=== PATIENT | male | born 1970 | race African-American/Black ===

== ENCOUNTER 2020-05-10 12:04 | Observation (INO) ==
[2020-05-10] MEDS ORDERED: METOPROLOL TARTRATE 5 MG/5 ML VIAL IV STA (13:08)
[2020-05-10] MEDS ORDERED: ASPIRIN 325 MG TABLET PO STA (13:08)
[2020-05-10 13:09] LABS: Troponin I < 0.015 NG/ML (0.00-0.045)
[2020-05-10 13:25] LABS: Basophils # 0.1 10*3/uL (0.0-0.2); Basophils % 1.4 % (0.0-0.8); Eosinophils # 0.1 10*3/uL (0.0-0.87); Eosinophils % 1.4 % (0.00-10.9); Hematocrit 47.9 VOL% (42.0-52.0); Hemoglobin 15.1 GM/DL (14.0-18.0); Immature Granulocytes % 0.3 %; Immature Granulocytes Absolute 0.02 #; Lymphocytes # 2.5 10*3/uL (1.4-4.0); Lymphocytes % 43.3 % (21.2-54.2); Mean Corpuscular HGB Conc 31.5 GM/DL (32-36); Mean Corpuscular Volume 88.7 FL (87-102); Mean Platelet Volume 10.8 FL (9.6-12.0); Monocytes % 5.4 % (1.7-12.7); Neutrophils % 48.2 % (38.7-73.9); Platelet Count 389 T/CUMM (130-400); Red Cell Distribution Width 11.7 % (9.3-17.3); White Blood Count 5.8 T/CUMM (4-12)
[2020-05-10 13:39] LABS: Albumin 4.3 G/DL (3.4-5.0); Bilirubin,Total 0.9 MG/DL (0.2-1.0); Calcium 9.3 MG/DL (8.5-10.1); Osmolality,Calculated 276.4 MOS/KG (273-304); Potassium 3.8 MMOL/L (3.5-5.1); Total Protein 9.1 G/DL (5.0-7.5)
[2020-05-10 14:42] LABS: Bilirubin,Urine Negative (Negative); Blood, Urine Negative (Negative); Glucose,Urine (UA) Negative (Negative); Ketones,Urine Negative (Negative); Nitrite,Urine Negative (Negative); Protein,Urine Negative; RBC,Urine 2 /HPF (0-4); Urine Appearance CLEAR (Clear); Urine Color Colorless (Yellow); Urine Specific Gravity 1.003 (1.001-1.035); Urine Urobilinogen < 2.0 EU/DL (0.2-1.0); WBC,Urine <1 /HPF (0-6)
[2020-05-10] MEDS ORDERED: hydrALAZINE 20 MG/1 ML VIAL IV PRN (14:56)
[2020-05-10] MEDS ORDERED: DEXTROSE 50% 25 GM/50 ML VIAL IV PRN (14:56)
[2020-05-10] MEDS ORDERED: ACETAMINOPHEN 325 MG TABLET PO PRN (14:56)
[2020-05-10] MEDS ORDERED: NITROGLYCERIN SL 0.4 MG TABLET SL PRN (14:56)
[2020-05-10] MEDS ORDERED: ONDANSETRON 4 MG/2 ML VIAL IV PRN (14:56)
[2020-05-10] MEDS ORDERED: GLUCAGON 1 MG VIAL IM PRN (14:56)
[2020-05-10] MEDS ORDERED: ENOXAPARIN 40 MG/0.4 ML SYRINGE SUBCUT SCH (15:00)
[2020-05-10] MEDS ORDERED: amLODIPine 5 MG TABLET PO ONE (15:01)
[2020-05-10 15:02] LABS: Barbiturates Screen,Urine Negative (Negative); Benzodiazepines Screen,Urine Negative (Negative); Cannabinoid Screen,Urine Negative (Negative); Opiate Screen,Urine Negative (Negative); Phencyclidine Screen,Urine Negative (Negative)
[2020-05-10] MEDS ORDERED: HydrOXYzine PAMOATE 25 MG CAPSULE PO PRN (15:14)
[2020-05-10] MEDS ORDERED: KETOROLAC 10 MG TABLET PO PRN (15:17)
[2020-05-10] MEDS: PANTOPRAZOLE 40 MG TABLET PO SCH (17:03)
[2020-05-10 17:48] LABS: Risk Ratio 3.78; Thyroid Stimulating Hormone 0.472 uIU/ml (0.358-3.74)
[2020-05-10] MEDS: lisinopriL 10 MG TABLET PO SCH (17:59)
[2020-05-10] MEDS: carvediloL 6.25 MG TABLET PO SCH (20:19)
[2020-05-10] MEDS ORDERED: ATORVASTATIN 40 MG TABLET PO SCH (21:00)
[2020-05-11 06:04] LABS: Basophils # 0.1 10*3/uL (0.0-0.2); Basophils % 0.9 % (0.0-0.8); Eosinophils # 0.1 10*3/uL (0.0-0.87); Eosinophils % 1.6 % (0.00-10.9); Hematocrit 39.5 VOL% (42.0-52.0); Hemoglobin 12.6 GM/DL (14.0-18.0); Immature Granulocytes % 0.3 %; Immature Granulocytes Absolute 0.02 #; Lymphocytes # 2.2 10*3/uL (1.4-4.0); Mean Corpuscular HGB Conc 31.9 GM/DL (32-36); Mean Corpuscular Volume 87.8 FL (87-102); Mean Platelet Volume 9.5 FL (9.6-12.0); Monocytes % 6.8 % (1.7-12.7); Neutrophils % 56.4 % (38.7-73.9); Platelet Count 463 T/CUMM (130-400); Red Cell Distribution Width 11.6 % (9.3-17.3); White Blood Count 6.5 T/CUMM (4-12)
[2020-05-11 06:31] LABS: Calcium 8.9 MG/DL (8.5-10.1); Osmolality,Calculated 276.7 MOS/KG (273-304)
[2020-05-11] MEDS ORDERED: ASPIRIN CHEW 81 MG TABLET PO SCH (09:00)
[2020-05-11] MEDS: lisinopriL 10 MG TABLET PO SCH (09:47)
[2020-05-11] MEDS: PANTOPRAZOLE 40 MG TABLET PO SCH (09:47)
[2020-05-11] MEDS: carvediloL 6.25 MG TABLET PO SCH (09:48)
[2020-05-11] MEDS ORDERED: SODIUM CHLORIDE 0.9% 500 ML IV ONE (10:45)
[2020-05-11 12:20] VITALS: BP 119/80
== END 2020-05-11 13:35 | disposition home or self-care (01) ==
LOC: N.EDINP 12:04 → N.ED 12:04 → N.TELEN 16:08
PROVIDERS: ADMIT Internal Medicine; ATTEND Internal Medicine